=== PATIENT | male | born 1995 | race Two or more races ===

== ENCOUNTER 2023-05-27 11:56 | Emergency (ER) | payer BC ==
[~2023-05-27] VITALS: Ht 185.4 cm; Wt 79.4 kg
[2023-05-27 13:19] LABS: HEMATOCRIT 38.2 % (39.0-48.0); HEMOGLOBIN 13.2 g/dL (13-16.00); MEAN CELL VOLUME 88.6 fL (80.0-100.00); MEAN CORPUSCULAR HEMOGLOBIN 30.7 pg (27.00-32.0); MEAN CORPUSCULAR HGB CONC 34.6 g/dl (32.0-36.0); PLATELET COUNT 320 K/uL (150-450); RED BLOOD COUNT 4.32 M/uL (4.00-6.00); RED CELL DISTRIBUTION WIDTH 12.9 % (11.5-14.5)
[2023-05-27 13:42] LABS: CALCIUM 9.4 mg/dL (8.5-10.1); CREATININE SERUM 0.83 mg/dL (0.70-1.30); GFR 111.99; POTASSIUM 4.79 mEq/L (3.5-5.1)
== END 2023-05-27 17:07 | disposition home or self-care (01) ==
LOC: ER 11:57 → EDBD 11:57 → ER 12:17
PROVIDERS: General Practice
DX: B27.90 Infectious mononucleosis, unspecified without complication (principal); R53.81 Other malaise